=== PATIENT | male | born 1980 | race Caucasian/White ===

== ENCOUNTER 2023-07-20 03:50 | Emergency (ER) | payer OTHER, SELFPAY ==
[2023-07-20 04:00] VITALS: BP 182/171
[2023-07-20 04:01] VITALS: BP 144/99; BMI 24.2
[2023-07-20 04:04] VITALS: BP 144/94
[2023-07-20] MEDS: NSS 1000 IV (04:10)
[2023-07-20] MEDS: COMPAZINE 10 MG IV (04:10)
[2023-07-20 04:11] LABS: % Basophils 0.3 % (0-2); % Eosinophils 1.5 % (0-6); % Immature Granulocytes 0.2 % (0-0.5); % Lymphocytes 31.3 % (20.5-51.1); % Monocytes 8.3 % (1.7-9.3); % Neutrophils 58.4 % (42.2-75.2); Absolute Eosinophils 0.1 10^3/uL (0-0.7); Absolute Lymphocytes 2.7 10^3/uL (1.2-3.4); Absolute Monocytes 0.7 10^3/uL (0.1-0.6); Hematocrit 33.6 % (39.0-52.0); Hemoglobin 11.4 g/dL (13.0-18.0); Mean Corp Hgb Conc. 33.9 g/dL (33.0-37.0); Mean Corpuscular Hgb 26.9 pg (27.0-31.0); Mean Corpuscular Volume 79.2 fL (80.0-94.0); Mean Platelet Volume 8.1 fL (7.4-10.4); Nucleated Red Blood Cells % 0 % (-); Platelet Count 233 10^3/uL (130-400); Red Blood Cell Count 4.24 10^6/uL (4.70-6.10); Red Cell Dist. Width 13.8 % (11.5-14.5); White Blood Cell Count 8.6 10^3/uL (4.8-10.8)
[2023-07-20] MEDS: SUBUTEX 8 MG SL ×2 (04:14→05:40)
--- NOTE | 2023-07-20 04:29 | ED.GENMED ---
History of Present Illness
General
Chief Complaint: Withdrawal Symptoms
Source: patient and police
Exam Limitations: clinical condition
Time Seen by Provider: 07/20/23 03:59
Nursing documentation reviewed up to this point in time: agreed with
Travel History
Have you had any contact with someone who has COVID-19?: No
Do you have any symptoms of coronavirus? Fever > 100 degrees, chills, cough, shortness of breath, sore throat, loss of taste or smell, muscle aches, or headache?: No
History of Present Illness
History of Present Illness:
43-year-old male homeless brought to [facility] by local [facility] with [place] on the [place], en route to the custodial started vomiting states he is withdrawing from fentanyl and tranck last use 5 or 6 hours ago, he injects,
Past History
Social History
Living: homeless
Employment: Not employed
Review of Systems
Review of Systems
All Other Systems: Not applicable
Constitutional: Denies fever
Respiratory: Reports no symptoms
Cardiac: Reports no symptoms
ABD/GI: Reports nausea and vomiting
Phy Exam
Physical Exam
Physical Exam:
Physical Exam
General: Agitated male vomiting, afebrile
Neck: Pupils round reactive
Heart: Rate
Lungs: no acute respiratory distress. clear bilaterally
Neuro: alert and oriented. Moves all extremity
Skin: no rash
Psychiatric: Agitated initially cooperative after
Extremities: Venous stasis changes of the lower extremity
Course
Orders/Labs/Results
Orders:
Orders
07/20/23 03:52
Urine Drug Abuse Screen Urgent
Date Specimen was Collected: 07/20/23
Time Specimen was Collected: 03:52
07/20/23 04:00
0.9% Sodium Chloride 1000 ml [Nss] 1,000 ml IV BOLUS
Ondansetron Injectable [Zofran] 4 mg IV NOW STA
07/20/23 04:02
Alcohol Urgent
Basic Metabolic Panel Urgent
Complete Blood Count/With Diff Urgent
07/20/23 04:06
Ondansetron Injectable [Zofran] 4 mg .ROUTE .STK-MED ONE
07/20/23 04:08
Prochlorperazine [Compazine] 10 mg IV NOW STA
07/20/23 04:11
Buprenorphine [Subutex] 8 mg SL NOW STA
07/20/23 08:00
Buprenorphine [Subutex] 8 mg SL DAILY
Abnormal Lab Results
07/20/23
04:02
RBC 4.24 L 10^6/uL
(4.70-6.10)
Hgb 11.4 L g/dL
(13.0-18.0)
Hct 33.6 L %
(39.0-52.0)
MCV 79.2 L fL
(80.0-94.0)
MCH 26.9 L pg
(27.0-31.0)
Absolute Monos (auto) 0.7 H 10^3/uL
(0.1-0.6)
BUN 21 H mg/dl
(9-20)
Creatinine 0.6 L mg/dL
(0.7-1.3)
07/20/23 04:02
07/20/23 04:02
Vital Signs
Initial and Last Documented VS:
Initial Vital Signs
Temp Pulse Resp BP Pulse Ox
97.8 F 74 16 144/99 98
07/20/23 04:01 07/20/23 04:01 07/20/23 04:01 07/20/23 04:01 07/20/23 04:01
Last Documented Vital Signs
Temp Pulse Resp BP Pulse Ox
97.8 F 74 16 144/99 98
07/20/23 04:01 07/20/23 04:01 07/20/23 04:01 07/20/23 04:01 07/20/23 04:01
MDM/Problems Addressed
Differential Diagnosis Includes:
Narcotic withdrawal narcotic occult infection dehydration
MDM/Problems Addressed:
Vomiting
Narcotic withdrawal
*Pulse Oximetry
Patient hypoxic: no
*Critical Care Note
Total Time (30-74mins, 75-104mins- exclusive of procedures): Not Applicable
Update Note
Update Note:
4:20 AM patient calm no longer vomiting cooperative normal white count afebrile normal heart rate normal respiratory rate,
ED Attending Note
-
Portions of this chart may have been created with voice recognition software.� Occasional wrong word or��sound alike� substitutions may have occurred due to the inherent limitations of voice recognition software.
Discharge Plan
Departure
Patient Disposition: Skilled Nursing
Date of Disposition: 07/20/23
Time of Disposition: 04:41
Patient with high blood pressure during this ER visit?: No
Condition: Good
Discharge Problem:
Acute narcotic withdrawal
Instructions: Drug Misuse and Addiction (DC), Nausea and Vomiting, Adult (DC)
Activity Restrictions/Additional Instructions:
Patient is medically clear for incarceration
Interventions
Interventions:
*Risk Screen - Suicide Last Done: 07/20/23 04:01
*General Assessment Last Done: 07/20/23 04:01
*Neglect/Abuse Screening Last Done: 07/20/23 04:01
ED- Fall Risk Assessment Last Done: 07/20/23 04:15
*ED COVID-19 Vaccine History Last Done: 07/20/23 04:01
ED- Neurological Assessment Last Done: 07/20/23 04:15
ED-Psychological Assessment Last Done: 07/20/23 04:15
Discharge Date and Time
Print Language: PALAUAN
[2023-07-20 04:35] LABS: Blood Urea Nitrogen 21 mg/dl (9-20); Calcium 9.3 mg/dl (8.4-10.2); Carbon Dioxide 26 mmol/L (22-30); Chloride 103 mmol/L (98-107); Estimated Creatinine Clearance > 125 ml/min; Glucose 91 mg/dl (70-99); Potassium 3.9 mmol/L (3.5-5.1); Sodium 136 mmol/L (135-145); eGFR > 60.00
[2023-07-20 04:44] LABS: Alcohol None Detected
[2023-07-20 05:00] VITALS: BP 184/95
[2023-07-20] MEDS: BENADRYL 25 MG IV (05:11)
[2023-07-20] MEDS: PHENERGAN 51 MG IV (05:17)
== END 2023-07-20 06:00 ==
LOC: EMR 03:50
PROVIDERS: EMERGENCY PHYSICIAN Emergency Medicine
DX: F11.23 Opioid dependence with withdrawal (principal); Z59.00 Homelessness unspecified
CPT/HCPCS: 99282; 96374; 96375; 96361; 80048; 82077; 85025